=== PATIENT | male | born 1990 | race Caucasian/White ===

== ENCOUNTER 2019-07-04 16:44 | Emergency (ER) | payer OTHER ==
[2019-07-04] MEDS ORDERED: Sodium Chloride 0.9% 1,000 ML ONE (17:05)
[2019-07-04] MEDS ORDERED: Lorazepam 2 MG/ML VIAL ONE (17:06)
--- NOTE | 2019-07-04 17:12 | RAD ---
Exam: Chest one view HISTORY:Dyspnea Comparison: None FINDINGS: Lungs: Focal patchy opacity at the left lateral lung base Cardiac silhouette:Accentuated by portable technique Pulmonary vessels: Accentuated by technique Pleural Spaces: Blunting of left lateral costophrenic sulcus Pneumothorax: None Osseous abnormalities: None of acuity. IMPRESSION: Focal patchy opacity left lateral lung base. There is adjacent pleural-based density with blunting of lateral left costophrenic sulcus. This could be on the basis of pneumonia with associated pleural fluid. Recommend follow-up with 2 view chest for continued evaluation. Transcribed Date/Time: 07/04/2019 5:32 PM
[2019-07-04 17:21] LABS: ALT (SGPT) 42 U/L (8-55); AST (SGOT) 27 U/L (5-34); Albumin 3.9 g/dL (3.5-5.0); Alkaline Phosphatase 60 U/L (40-110); Anion Gap 17 mmol/L (10-20); BUN (Urea Nitrogen) 11 mg/dL (8.9-20.6); Bilirubin, Total 0.3 mg/dL (0.2-1.2); CK (CPK) 27 U/L (30-200); Calc. Creatinine Clearance 0 mL/min (70-130); Carbon Dioxide 21 mmol/L (22-29); Chloride 106 mmol/L (98-107); Estimated GFR-MDRD 81; Globulin 2.9 g/dL (2.4-3.5); Glucose 93 mg/dL (70-105); Protein, Total 6.8 g/dL (6.0-8.3); Sodium 140 mmol/L (136-145)
[2019-07-04 17:22] LABS: #Basophils 0.1 thou/uL (0.0-0.2); #Eosinphils 0.2 thou/uL (0.0-0.7); #Monocytes 0.7 thou/uL (0.11-0.59); #Neutrophils 6.3 thou/uL (1.40-6.50); %Basophils 0.9 % (0.0-1.0); %Lymphocytes 21.3 % (21.0-51.0); %Monocytes 7.4 % (0.0-10.0); %Neutrophils 68.5 % (42.0-75.0); Hemoglobin 12.4 g/dL (14.0-18.0); Mean Corpuscular HGB CONC 31.7 g/dL (32.0-36.0); Mean Corpuscular Hemoglobin 25.3 pg (27.0-31.0); Mean Corpuscular Volume 79.8 fL (78.0-98.0); Mean Platelet Volume 7.8 fL (7.4-10.4); Platelet Count 298 thou/uL (130-400); RBC Distribution Width 16.3 % (11.5-14.5); White Blood Cell (WBC) Count 9.2 thou/uL (4.8-10.8)
[2019-07-04] MEDS ORDERED: traMADol HCl 50 MG TAB ONE (17:55)
== END 2019-07-04 19:35 | disposition home or self-care (01) ==
LOC: NAV ERS 16:44
DX: R07.1 Chest pain on breathing (principal); F41.9 Anxiety disorder, unspecified; Z86.73 Personal history of transient ischemic attack (TIA), and cerebral infarction without residual deficits; Z86.718 Personal history of other venous thrombosis and embolism; Z86.711 Personal history of pulmonary embolism; Z79.01 Long term (current) use of anticoagulants; Z79.899 Other long term (current) drug therapy
CPT/HCPCS: 71045; 80053; 82550; 84484; 85025; 85379; 93005; 96361; 96374; J2060; J7050